=== PATIENT | male | born 1995 | race Two or more races ===

== ENCOUNTER 2019-11-01 13:11 | Emergency (ER) | payer OTHER ==
[~2019-11-01] VITALS: Ht 177.8 cm; Wt 120.0 kg
--- NOTE | 2019-11-01 13:42 | NUR ---
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
[2019-11-01 14:05] LABS: MICROSCOPIC INDICATED
[2019-11-01] MEDS ORDERED: ONDANSETRON 2MG/ML, 2ML ONE (14:26)
[2019-11-01] MEDS ORDERED: MORPHINE SULFATE 4 MG/ML, 1ML ONE (14:27)
[2019-11-01] MEDS ORDERED: MORPHINE SULFATE 4 MG/ML, 1ML IVPush PRN (14:30)
[2019-11-01] MEDS ORDERED: ONDANSETRON 2MG/ML, 2ML IVPush ONE (14:30)
[2019-11-01] MEDS ORDERED: SODIUM CHLORIDE FLUSH 10ML SYR IVF ONE (14:30)
[2019-11-01 14:36] LABS: BASOPHILS # (AUTO) 0.03 x10^3/uL (0-0.1); BASOPHILS % (AUTO) 0 % (0-1); EOSINOPHILS # (AUTO) 0.01 x10^3/uL (0-0.4); EOSINOPHILS % (AUTO) 0 % (1-7); LYMPHOCYTES # (AUTO) 1.49 x10^3/uL (1-3.4); LYMPHOCYTES % (AUTO) 12 % (22-44); MD NO; MEAN CORPUSCULAR HGB CONC 33.7 g/dL (33.2-36.2); MEAN PLATELET VOLUME 8.1 fL (7.4-10.4); MONOCYTES % (AUTO) 4 % (2-9); NEUTROPHILS # (AUTO) 10.91 x10^3/uL (1.8-6.8); NEUTROPHILS % (AUTO) 84 % (42-75); PLATELET COUNT 361 x10^3/uL (130-400); RED BLOOD COUNT 5.31 x10^6/uL (4.38-5.82); RED CELL DISTRIBUTION WIDTH 13.3 % (9.4-14.8)
--- NOTE | 2019-11-01 14:43 | NUR ---
PIV PLACED BY TASK RN, LABS DRAWN AND SENT TO LAB. TASK RN MEDICATED PT PER JUN. PT PROVIDED WARM BLANKET. PT RESTING COMFORTABLY ON GURNEY AND TALKING ON PHONE. PT INFORMED ABOUT NPO STATUS. LAST TIME PT ATE WAS YESTERDAY ABOUT 1200.
[2019-11-01 14:47] LABS: ALANINE AMINOTRANSFERASE 27 U/L (12-78); ALBUMIN 4.5 g/dL (3.4-5.0); ANION GAP 9 mmol/L (5-15); CHLORIDE 106 mmol/L (98-107)
[2019-11-01 14:49] LABS: ALKALINE PHOSPHATASE 63 U/L (45-117); BILIRUBIN,TOTAL 1.4 mg/dL (0.2-1.0); CREATININE 1.09 mg/dL (0.7-1.3); TOTAL PROTEIN 8.2 g/dL (6.4-8.2)
--- NOTE | 2019-11-01 15:20 | NUR ---
PT STATES PAIN IS MUCH BETTER AFTER MEDS. AWAITING CT.
--- NOTE | 2019-11-01 15:45 | NUR ---
PT GOING TO CT
[2019-11-01 16:15] VITALS: BP 104/56
--- NOTE | 2019-11-01 16:16 | NUR ---
ALL RESULTS ARE BACK AT THIS TIME. CHART UP FOR RECHECK.
== END 2019-11-01 17:00 | disposition home or self-care (01) ==
LOC: ED 15:43
DX: N13.2 Hydronephrosis with renal and ureteral calculous obstruction (principal); R10.31 Right lower quadrant pain
CPT/HCPCS: 36415; 74176; 80053; 81001; 85025; 87086; 96374; 96375; 99284; J2270; J2405